=== PATIENT | male | born 1965 | race Caucasian/White ===

== ENCOUNTER 2018-10-08 11:22 | Emergency (ER) | payer OTHER ==
[~2018-10-08] VITALS: Ht 172.7 cm; Wt 68.0 kg
[2018-10-08] MEDS ORDERED: [UNRECOGNIZED DRUG - OTHER] (12:15)
[2018-10-08] MEDS ORDERED: NAPROXEN500 MG PO (15:28)
== END 2018-10-08 16:15 | disposition home or self-care (01) ==
LOC: ER 11:22
DX: M77.11 Lateral epicondylitis, right elbow (principal); M25.521 Pain in right elbow

== ENCOUNTER 2020-07-09 11:30 | Outpatient (CLI) | payer OTHER ==
[~2020-07-09 11:30] MED LIST: NAPROXEN500 MG PO; [UNRECOGNIZED DRUG - OTHER]
== END 2020-07-09 18:50 | disposition home or self-care (01) ==
LOC: LAB 11:30
PROVIDERS: ATTEND Radiology Diagnostic Radiology
DX: N20.0 Calculus of kidney (principal)

== ENCOUNTER → 2020-07-10 | Outpatient (CLI) | payer OTHER | END | disposition home or self-care (01) | LOC: TOM 07:16 | PROVIDERS: ATTEND Urology | DX: N20.1 Calculus of ureter (principal); M54.5 Low back pain; R31.1 Benign essential microscopic hematuria ==